=== PATIENT | female | born 1960 | race Caucasian/White ===

== ENCOUNTER 2018-04-27 10:24 | Emergency (ER) | payer BC ==
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
[2018-04-27 12:56] VITALS: BP 111/66
== END 2018-04-27 12:54 | disposition home or self-care (01) ==
DX: S83.91XA Sprain of unspecified site of right knee, initial encounter (principal); S20.419A Abrasion of unspecified back wall of thorax, initial encounter; S60.512A Abrasion of left hand, initial encounter; S80.812A Abrasion, left lower leg, initial encounter; Z87.891 Personal history of nicotine dependence; V18.9XXA Unspecified pedal cyclist injured in noncollision transport accident in traffic accident, initial encounter; Y92.89 Other specified places as the place of occurrence of the external cause; Y99.8 Other external cause status; Y93.89 Activity, other specified